=== PATIENT | male | born 2000 | race Caucasian/White ===

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

== ENCOUNTER 2020-06-02 10:33 | Emergency (ER) | payer BC, OTHER ==
[~2020-06-02] VITALS: Ht 175.3 cm; Wt 63.5 kg
--- NOTE | 2020-06-02 10:41 | NUR ---
Dr Bowers at the bedside for MSE.
--- NOTE | 2020-06-02 10:47 | NUR ---
Patient discharged to home in stable condition & brisk syeady gait. Written and verbal after care instructions given to patient and patient's dad. Patient and family verbalized understanding & compliance of instructions. Stressed follow up with lead bi developer or primary doctor or return to ER for worsening s/s.
== END 2020-06-02 10:47 | disposition home or self-care (01) ==
LOC: ER 10:33
DX: L03.031 Cellulitis of right toe (principal); Z82.5 Family history of asthma and other chronic lower respiratory diseases
CPT/HCPCS: A4663